=== PATIENT | female | born 2000 | race Caucasian/White ===

== ENCOUNTER 2019-05-26 11:38 | Emergency (ER) | payer BC, MEDICAID ==
[~2019-05-26] VITALS: Ht 167.6 cm; Wt 65.8 kg
[2019-05-26 11:43] VITALS: BP_SYST 116
--- NOTE | 2019-05-26 11:45 | NUR ---
Patient to ER bed 3 to gown for evaluation. Side rails up.
--- NOTE | 2019-05-26 11:48 | NUR ---
ER Dr. Teresa at bedside examining patient.
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
--- NOTE | 2019-05-26 11:52 | NUR ---
x-ray at the bedside.
[2019-05-26] MEDS ORDERED: DIPH-TET-PERTUS Vaccine 0.5 ML VIAL (ADACEL) I.M. ONE (12:00)
[2019-05-26] MEDS ORDERED: IBUPROFEN 600 MG TABLET PO ONE (12:00)
--- NOTE | 2019-05-26 12:02 | NUR ---
pt reports feeling better.
[2019-05-26] MEDS ORDERED: BACITRACIN 1 GM OINT TP ONE (12:46)
[2019-05-26 13:01] VITALS: BP_SYST 128
--- NOTE | 2019-05-26 13:01 | NUR ---
plPatient given written and verbal discharge instructions and verbalizes understanding. ER MD Teresa discussed with patient the results and treatment provided. Patient in stable condition. ID arm band removed. Rx of Ibuprofen given. Patient educated on pain management and to follow up with PMD. Pain Scale 0. Opportunity for questions provided and answered. Medication side effect fact sheet provided.
== END 2019-05-26 13:01 | disposition home or self-care (01) ==
LOC: SED 11:38
DX: S60.221A Contusion of right hand, initial encounter (principal); V43.52XA Car driver injured in collision with other type car in traffic accident, initial encounter; Y93.89 Activity, other specified; Y92.89 Other specified places as the place of occurrence of the external cause; Y99.8 Other external cause status
CPT/HCPCS: 90715; 99283